=== PATIENT | male | born 1970 | race Caucasian/White ===

== ENCOUNTER 2020-07-22 08:49 | Emergency (ER) | payer SELFPAY ==
[2020-07-22 08:58] VITALS: BP 145/71; PULSE 64; TEMP 97.8; BMI 31.2
[2020-07-22] MEDS ORDERED: IBUPROFEN 600 MG TABLET (FP) PO ONE ×2 (09:28→10:07)
== END 2020-07-22 10:37 | disposition home or self-care (01) ==
LOC: JER 08:49
DX: M54.6 Pain in thoracic spine (principal)
CPT/HCPCS: 71046-TC-FY; 93005; 93010; 99284-25